=== PATIENT | female | born 1995 | race African-American/Black ===

== ENCOUNTER 2021-10-03 18:48 | Emergency (ER) | payer MEDICAID ==
[~2021-10-03] VITALS: Ht 162.6 cm; Wt 61.0 kg
[2021-10-03] MEDS ORDERED: MAGNESIUM/ALUMINUM HYDROXIDE/SIMETHICONE 30ML UDC PO STA (19:34)
[2021-10-03] MEDS ORDERED: VISCOUS LIDOCAINE 2% 15 ML UDC PO STA (19:34)
[2021-10-03] MEDS ORDERED: IBUPROFEN 600MG TABLET PO STA (19:34)
[2021-10-03] MEDS ORDERED: ONDANSETRON 4MG ODT PO STA (19:34)
[2021-10-03 19:47] LABS: HEMATOCRIT. 38.4 % (36.0-48.0); HEMOGLOBIN. 12.5 g/dL (12.0-16.0); MEAN CORPUSCULAR HEMOGLOBIN 30.2 pg (28.0-32.0); MEAN CORPUSCULAR VOLUME 93.1 fL (81.0-99.0); MEAN PLATELET VOLUME 9.2 fl (7.4-10.4); PLATELET 234 x1000/uL (130-400); RED BLOOD CELL COUNT 4.12 mill/uL (4.2-5.4); RED CELL DISTRIBUTION WIDTH 13.1 % (11.6-14.6)
[2021-10-03 19:53] LABS: CHLORIDE 109 mEq/L (98-107)
[2021-10-03 19:59] LABS: INR 1.2; PROTHROMBIN TIME 12.8 sec (9.6-11.0)
[2021-10-03 20:05] LABS: HCG SCREEN NEGATIVE
[2021-10-03 20:55] LABS: PLATELET ESTIMATE NORMAL
[2021-10-03 22:22] LABS: CLARITY URINE CLEAR (CLEAR); COLOR URINE YELLOW (YELLOW); KETONES URINE TRACE (NEGATIVE); LEUKOCYTE ESTERASE URINE NEGATIVE (NEGATIVE); NITRITE URINE NEGATIVE (NEGATIVE); OCCULT BLOOD URINE NEGATIVE (NEGATIVE); PH URINE 5.5 (4.5-8.0); PROTEIN URINE NEGATIVE (NEGATIVE); SPECIFIC GRAVITY URINE 1.024 (1.005-1.030); UROBILINOGEN URINE 0.2 E.U./dL (0.2-1.0)
[2021-10-03] MEDS ORDERED: IBUPROFEN 600MG TABLET PO NR (22:56)
[2021-10-03] MEDS ORDERED: ONDANSETRON 4MG ODT PO NR (22:56)
[2021-10-03] MEDS ORDERED: MAGNESIUM/ALUMINUM HYDROXIDE/SIMETHICONE 30ML UDC PO NR (22:56)
[2021-10-03] MEDS ORDERED: VISCOUS LIDOCAINE 2% 15 ML UDC PO NR (22:57)
[2021-10-03] MEDS ORDERED: IBUP-2028 MT (23:23)
[2021-10-03 23:33] VITALS: BP 125/62
== END 2021-10-03 23:36 | disposition home or self-care (01) ==
LOC: ER 18:48
DX: N83.201 Unspecified ovarian cyst, right side (principal); N83.202 Unspecified ovarian cyst, left side; R19.7 Diarrhea, unspecified
CPT/HCPCS: 36415; 74176; 76830; 76856; 80053; 81003; 81025; 83690; 84703; 85025; 85610; 99284; Q0162

== ENCOUNTER 2022-01-26 22:30 | Emergency (ER) | payer MEDICAID ==
[~2022-01-26] VITALS: Ht 162.6 cm; Wt 64.0 kg
[~2022-01-26 22:30] MED LIST: IBUP-2028 MT
[2022-01-26 23:47] LABS: CLARITY URINE CLEAR (CLEAR); COLOR URINE DARK YELLOW (YELLOW); KETONES URINE 2+ (NEGATIVE); LEUKOCYTE ESTERASE URINE NEGATIVE (NEGATIVE); NITRITE URINE NEGATIVE (NEGATIVE); OCCULT BLOOD URINE NEGATIVE (NEGATIVE); PROTEIN URINE 1+ (NEGATIVE); SPECIFIC GRAVITY URINE 1.037 (1.005-1.030)
[2022-01-27] MEDS ORDERED: ACETAMINOPHEN 325MG TABLET PO ONE (01:00)
[2022-01-27] MEDS ORDERED: PANTOPRAZOLE SODIUM 40 MG/VIAL IV ONE (01:00)
[2022-01-27] MEDS ORDERED: PANTOPRAZOLE SODIUM 40 MG/VIAL IV NR (03:45)
[2022-01-27] MEDS ORDERED: ACETAMINOPHEN 325MG TABLET PO NR (03:45)
[2022-01-27 03:52] LABS: BASOPHILS % 0.4 % (0.0-2.0); EOSINOPHILS % 0.1 % (0.0-5.0); HEMATOCRIT. 37.7 % (36.0-48.0); HEMOGLOBIN. 12.3 g/dL (12.0-16.0); LYMPHOCYTES % 11.4 % (20.0-50.0); MEAN CORPUSCULAR HEMOGLOBIN 30.2 pg (28.0-32.0); MEAN CORPUSCULAR VOLUME 92.8 fL (81.0-99.0); MONOCYTES % 6.5 % (2.0-8.0); NEUTROPHILS % 81.6 % (40.0-76.0); RED BLOOD CELL COUNT 4.06 mill/uL (4.2-5.4); RED CELL DISTRIBUTION WIDTH 12.8 % (11.6-14.6)
[2022-01-27 03:59] LABS: CHLORIDE 103 mEq/L (98-107)
[2022-01-27 04:09] LABS: MEAN PLATELET VOLUME 8.8 fl (7.4-10.4); PLATELET 231 x1000/uL (130-400)
[2022-01-27] MEDS ORDERED: HYDROCODONE/ACETAMINOPHEN 5/325MG TABLET PO ONE (05:30)
[2022-01-27 05:45] VITALS: BP 124/79
[2022-01-27] MEDS ORDERED: ACET-2708 MT (06:03)
[2022-01-27] MEDS ORDERED: PANT20TA17 MT (06:03)
[2022-01-27] MEDS ORDERED: METR-167 PO (07:14)
[2022-01-27] MEDS ORDERED: CIPR-263 PO (07:14)
== END 2022-01-27 07:33 | disposition home or self-care (01) ==
LOC: ER 22:30
DX: R10.13 Epigastric pain (principal); R19.7 Diarrhea, unspecified; D64.9 Anemia, unspecified
CPT/HCPCS: 36415; 74176; 80053; 81003; 81025; 83690; 85025; 96374; 99284; C9113; Z7610